=== PATIENT | female | born 1995 | race Caucasian/White ===

== ENCOUNTER 2024-07-02 06:12 | Inpatient (IN) | payer SELFPAY ==
[2024-07-02] MEDS ORDERED: Misoprostol 200 MCG Tab PO PRN (06:49)
[2024-07-02] MEDS ORDERED: Sodium Chloride 0.9% 20 ML SDV IV PRN (06:49)
[2024-07-02] MEDS ORDERED: Sodium Chloride 0.9% 2.5 ML Syringe FLUSH PRN (06:49)
[2024-07-02] MEDS ORDERED: Sodium Chloride 0.9% 10 ML Syringe FLUSH PRN (06:49)
[2024-07-02] MEDS ORDERED: Lidocaine 1% 50 ML MDV INJECT PRN (06:49)
[2024-07-02] MEDS ORDERED: Carboprost Tromethamine 250 MCG/1 mL Vial IM PRN (06:49)
[2024-07-02] MEDS ORDERED: Methylergonovine 0.2 MG/1 ML Amp IM PRN (06:49)
[2024-07-02] MEDS ORDERED: Water For Irrigation,Sterile 1,000 ML Container IRR PRN (06:49)
[2024-07-02] MEDS ORDERED: Oxytocin/0.9 % Sodium Chloride 30 UNIT/500 ML BAG IV SCH (07:00)
[2024-07-02] MEDS ORDERED: Phenylephrine HCl In 0.9% NaCl 1 MG/10 ML Syringe IVPUSH PRN ×2 (07:25→10:02)
[2024-07-02] MEDS ORDERED: ePHEDrine 50 MG/ML SDV IVPUSH PRN ×2 (07:25→10:02)
[2024-07-02] MEDS ORDERED: Ropivacaine HCl/PF 400 MG in Premix Bag 1 BAG EPIDUR SCH ×2 (07:30→10:15)
[2024-07-02] MEDS ORDERED: dexmedeTOMIDine HCl 200 MCG/2 ML SDV EPIDUR SCH ×2 (07:30→10:15)
[2024-07-02 07:44] LABS: HEMATOCRIT 39.7 % (37.0-47.0); HEMOGLOBIN 14.3 g/dL (12.0-16.0); MEAN CORPUSCULAR HEMOGLOBIN 30.9 pg (28.0-32.0); MEAN CORPUSCULAR VOLUME 85.7 fL (83.0-99.0); MEAN PLATELET VOLUME 11.7 fL (9.4-12.3); PLATELET COUNT,PLT 148 K/uL (150-400); RED BLOOD CELL COUNT 4.63 M/uL (4.10-5.30); WHITE BLOOD CELL COUNT,WBC 11.02 K/uL (3.9-11.3)
[2024-07-02] MEDS: Ampicillin 2 GM in Sodium Chloride 0.9% 100 ML IV ONE (07:55)
[2024-07-02] MEDS: Lactated Ringers 1,000 ML IV SCH (07:56)
[2024-07-02] MEDS ORDERED: Butorphanol 2 MG/ML SDV IVPUSH PRN (10:23)
[2024-07-02] MEDS: Butorphanol 2 MG/ML SDV IVPUSH PRN (10:49)
[2024-07-02] MEDS ORDERED: Ampicillin 1 GM Vial IM SCH (11:00)
[2024-07-02] MEDS: Ampicillin 1 GM in Sodium Chloride 0.9% 50 ML IV SCH ×2 (12:25→15:57)
[2024-07-02] MEDS: Ondansetron 4 MG/2 ML SDV IVPUSH PRN (14:26)
[2024-07-02] MEDS: Oxytocin/0.9 % Sodium Chloride 30 UNIT/500 ML BAG IV SCH (21:22)
[2024-07-02] MEDS ORDERED: Terbutaline 1 MG/ML SDV SUBCUT PRN (21:22)
[2024-07-03] MEDS ORDERED: Ampicillin/Sulbactam Na 3 GM in Sodium Chloride 0.9% 100 ML IV SCH (03:15)
[2024-07-03] MEDS: Ampicillin/Sulbactam Na 3 GM in Sodium Chloride 0.9% 100 ML IV SCH (03:26)
[2024-07-03] MEDS ORDERED: Ondansetron 4 MG/2 ML SDV ONE ×2 (09:16→09:40)
[2024-07-03] MEDS ORDERED: Dexamethasone 4 MG/ML 5 ML MDV ONE (09:37)
[2024-07-03] MEDS ORDERED: Tranexamic Acid 1,000 MG/10 ML Vial ONE (09:38)
[2024-07-03] MEDS ORDERED: Oxytocin 10 Units/1 ML SDV ONE ×2 (09:39→09:55)
[2024-07-03] MEDS ORDERED: Ropivacaine 0.5% 5 MG/ML 30 ML SDV ONE (09:39)
[2024-07-03] MEDS ORDERED: Morphine PF 10 MG/10 ML SDV ONE (09:40)
[2024-07-03] MEDS ORDERED: Calcium Chloride 10% 1 GM/10 ML Syringe ONE (09:45)
[2024-07-03] MEDS ORDERED: Sodium Chloride 0.9% 2.5 ML Syringe FLUSH PRN (09:51)
[2024-07-03] MEDS ORDERED: Sodium Chloride 0.9% 10 ML Syringe FLUSH PRN (09:51)
[2024-07-03] MEDS ORDERED: Sodium Chloride 0.9% 20 ML SDV IV PRN (09:51)
[2024-07-03] MEDS ORDERED: Oxytocin/0.9 % Sodium Chloride 30 UNIT/500 ML BAG IV SCH (10:00)
[2024-07-03] MEDS ORDERED: Lactated Ringers 1,000 ML IV SCH ×2 (10:00→12:30)
[2024-07-03] MEDS ORDERED: Phenylephrine HCl In 0.9% NaCl 1 MG/10 ML Syringe ONE (10:02)
[2024-07-03] MEDS ORDERED: droPERidol 5 MG/2 ML SDV ONE (10:03)
[2024-07-03] MEDS ORDERED: Propofol 200 MG/20 ML SDV ONE (10:07)
[2024-07-03] MEDS ORDERED: Lanolin 100% Cream 7 GM Tube TOP PRN (12:18)
[2024-07-03] MEDS ORDERED: diphenhydrAMINE 50 MG/ML SDV IVPUSH PRN (12:18)
[2024-07-03] MEDS ORDERED: Ondansetron 4 MG/2 ML SDV IVPUSH PRN (12:18)
[2024-07-03] MEDS ORDERED: Bisacodyl 10 MG Supp RECTAL PRN (12:18)
[2024-07-03] MEDS ORDERED: Acetaminophen/oxyCODONE 325-5 MG Tab PO PRN ×2 (12:18)
[2024-07-03] MEDS: Ketorolac 30 MG/ML SDV IVPUSH SCH (13:03)
[2024-07-03] MEDS: Docusate Sodium 100 MG Cap PO SCH (20:31)
[2024-07-03] MEDS: fentaNYL 100 MCG/2 ML SDV ONE (22:28)
[2024-07-03] MEDS: Bupivacaine 0.5% 30 ML SDV ONE (22:29)
[2024-07-04 06:11] LABS: HEMATOCRIT 33.6 % (37.0-47.0)
[2024-07-04] MEDS: Ibuprofen 800 MG Tab PO PRN (20:40)
[2024-07-06] MEDS ORDERED: Prenatal Multivitamin with Calcium/Folic Acid/Iron Tab PO SCH (09:00)
== END 2024-07-05 12:50 | disposition home or self-care (01) | DRG 786 ==
LOC: MW.OBCHECK 06:12 → MW.OB 06:18 → MW.OBCHECK 06:49 → OBSVTOIN 07-03 09:51 → MW.OB 07-03 23:23
PROVIDERS: ADMIT Obstetrics & Gynecology; ATTEND Obstetrics & Gynecology
PROC: 10907ZC Drainage of Amniotic Fluid, Therapeutic from Products of Conception, Via Natural or Artificial Opening (ICD-10-PCS; 2024-07-03)
PROC: 10D00Z1 Extraction of Products of Conception, Low, Open Approach (ICD-10-PCS; principal; 2024-07-03 09:45)
DX: O99.824 Streptococcus B carrier state complicating childbirth (principal); O41.1230 Chorioamnionitis, third trimester, not applicable or unspecified; O24.429 Gestational diabetes mellitus in childbirth, unspecified control; O62.2 Other uterine inertia; Z37.0 Single live birth; Z3A.39 39 weeks gestation of pregnancy
CPT/HCPCS: 01967; 01968; 36415; 51702; 59025; 59514; 64999; 74018; 74018-26; 85014; 85018; 85027; 86592; 86850; 86900; 86901; A9270-GY; J0131; J0290; J0295; J0595; J0665; J1100; J1790; J1885; J2210; J2274; J2371; J2405; J2590; J2704; J2795; J3010; J3490; J7120

== ENCOUNTER 2025-02-15 19:58 | Emergency (ER) | payer BC | END 2025-02-15 20:49 | disposition home or self-care (01) | LOC: MW.ED 19:58 | DX: L02.511 Cutaneous abscess of right hand (principal); L03.011 Cellulitis of right finger; F17.200 Nicotine dependence, unspecified, uncomplicated; Z79.899 Other long term (current) drug therapy | CPT/HCPCS: 99282 ==